=== PATIENT | female | born 1985 | race Hispanic/Latino ===

== ENCOUNTER 2022-07-22 02:53 | Emergency (ER) | payer SELFPAY ==
[~2022-07-22] VITALS: Ht 167.6 cm; Wt 124.7 kg
[2022-07-22] MEDS ORDERED: TETRACAINE HCL 0.5% OPTH SOLN 4 ML BTL OP ONE (03:30)
[2022-07-22] MEDS ORDERED: FLUORESCEIN SOD(OPTH) 1 MG STRP OP ONE (03:30)
[2022-07-22] MEDS ORDERED: ZERVIATE1 EACH OU (03:43)
== END 2022-07-22 04:00 | disposition home or self-care (01) ==
LOC: FSED 03:01
DX: H10.13 Acute atopic conjunctivitis, bilateral (principal)
CPT/HCPCS: 99283